=== PATIENT | male | born 1960 | race Caucasian/White ===

== ENCOUNTER → 2018-07-29 | Outpatient (CLI) | payer BC ==
[~2018-07-29] MED LIST: ASPI81TA86 PO; CEPH500T7 PO; GABA-549 PO; LISI-351 PO; LOR5/325 PO; MONT10TA PO; MONT10TA4 PO; OMEP-114 PO
--- NOTE | 2018-07-29 17:22 | RADIOLOGY IMAGING REPORT ---
FACILITY: [facility] PATIENT NAME: Quinn Wall : 1960 MR: [id number] V: [id number] EXAM DATE: [id number] ORDERING PHYSICIAN: QUINTIN REY TECHNOLOGIST: Location: [facility] [place] Patient: Quinn Wall : 1960 Visit/Account:[id number] Date of Sevice: 07/29/2018 Exam type: US VENOUS LOWER EXT LT History: History of DVT, trauma 1.5 weeks previously with hematoma Comparison: None. Findings: Along the medial aspect of the upper left thigh there is a 1.4 x 4.6 x 2.5 cm complex hypoechoic soto ection likely representing hematoma given the clinical history. The left common femoral vein greater saphenous vein superficial femoral vein popliteal vein posterior tibial vein anterior tibial vein peroneal veins are compressible and demonstrate augmentation with n o evidence of intraluminal thrombus IMPRESSION: 1. No sonographic evidence DVT involving the left lower extremity veins Large complex hypoechoic collection medial aspect of the upper left thigh likely hematoma given the c linical history of trauma Report Dictated By: Margo Damian MD at 07/29/2018 5:14 PM Report E-Signed By: Margo Damian MD at 07/29/2018 5:17 PM WSN:[email or web address]
== END ==
LOC: US 16:11
PROVIDERS: ATTEND Nurse Practitioner Family
DX: Z86.718 Personal history of other venous thrombosis and embolism (principal)

== ENCOUNTER → 2018-08-19 | Outpatient (REF) | LOC: AUD 13:30 | PROVIDERS: ATTEND Family Medicine | DX: Z01.12 Encounter for hearing conservation and treatment (principal) | CPT/HCPCS: 92552 ==